=== PATIENT | male | born 1975 | race Hispanic/Latino ===

== ENCOUNTER 2020-11-15 23:22 | Emergency (ER) | payer MEDICARE ==
[~2020-11-15] VITALS: Ht 175.3 cm; Wt 117.9 kg
[2020-11-16] MEDS ORDERED: ONDANSETRON HCL INJ 2MG/ML 2ML 2 MG/ML VIAL IV ONE
[2020-11-16] MEDS ORDERED: KETOROLAC TROMETHAMINE 30 MG/ML VIAL IV ONE
[2020-11-16] MEDS ORDERED: ACETAMINOPHEN 325 MG TAB PO ONE
[2020-11-16] MEDS ORDERED: CLONIDINE HCL 0.1 MG TAB PO ONE
[2020-11-16] MEDS ORDERED: ESGIC 50-325-41 EACH PO (00:02)
[2020-11-16] MEDS ORDERED: METOPROLOL SUCC25 MG PO (00:02)
[2020-11-16] MEDS ORDERED: LOSARTAN POTASS25 MG PO (00:02)
[2020-11-16] MEDS ORDERED: ONDANSETRON HCL INJ 2MG/ML 2ML 2 MG/ML VIAL ONE (00:38)
[2020-11-16] MEDS ORDERED: ACETAMINOPHEN 325 MG TAB ONE (00:38)
[2020-11-16] MEDS ORDERED: KETOROLAC TROMETHAMINE 30 MG/ML VIAL ONE (00:38)
[2020-11-16] MEDS ORDERED: CLONIDINE HCL 0.1 MG TAB ONE (00:38)
== END 2020-11-16 01:30 | disposition home or self-care (01) ==
LOC: FSED 23:27
DX: I16.0 Hypertensive urgency (principal); E11.65 Type 2 diabetes mellitus with hyperglycemia; R51.9 Headache, unspecified; E66.9 Obesity, unspecified
CPT/HCPCS: 70450; 80053; 85025; 99284; J1885; J2405

== ENCOUNTER 2024-07-03 15:01 | Emergency (ER) | payer BC ==
[~2024-07-03] VITALS: Ht 175.3 cm; Wt 113.4 kg
[~2024-07-03 15:01] MED LIST: ESGIC 50-325-41 EACH PO; LOSARTAN POTASS25 MG PO; METOPROLOL SUCC25 MG PO; ONDANSETRON ODT4 MG PO
[2024-07-03] MEDS ORDERED: MEDROL4 M2 PO (15:24)
[2024-07-03] MEDS ORDERED: FAMOTIDINE20 MG PO (15:26)
[2024-07-03] MEDS ORDERED: HYDROXYZIN10 MG/5 ML PO (15:26)
[2024-07-03] MEDS: ACETAMINOPHEN 325 MG TAB PO ONE (15:40)
[2024-07-03] MEDS: KETOROLAC TROMETHAMINE 30 MG/ML VIAL IM PRN (15:41)
[2024-07-03] MEDS ORDERED: ACETAMINOPHEN 325 MG TAB PO ONE (15:45)
[2024-07-03] MEDS ORDERED: PROPRANOLOL HCL40 MG PO (15:59)
[2024-07-03] MEDS ORDERED: OZEMPIC2 MG/0.75 (15:59)
[2024-07-03] MEDS ORDERED: ASPIRIN EC81 MG PO (15:59)
[2024-07-03] MEDS ORDERED: HYDROXYZINE HCL25 MG PO (16:05)
[2024-07-03 16:17] VITALS: PULSE 109; RESP 18; TEMP 101.2; O2SAT 97
== END 2024-07-03 16:23 | disposition home or self-care (01) ==
LOC: FSED 15:04
DX: R50.9 Fever, unspecified (principal); B34.9 Viral infection, unspecified; L30.9 Dermatitis, unspecified; R53.81 Other malaise; Z11.52 Encounter for screening for COVID-19
CPT/HCPCS: 0223U; 83518; 87400; 96372; 99283; J1885